=== PATIENT | female | born 1945 | race Caucasian/White ===

== ENCOUNTER 2019-09-18 21:25 | Inpatient (IN) | payer MEDICARE, BC ==
[~2019-09-18] VITALS: Ht 165.1 cm; Wt 99.8 kg
--- NOTE | 2019-09-18 21:35 | NUR ---
BIBRA 60FOR C/O CP 5/10 X 1 HOUR, NON- RQDIATING, +N/V. MONITOR APPLIED. PT HAS RECEIVED 324MG OF ASA MAYKEL A NITRO SL ON THE FIELD ASSOCIATE PROFESSOR OF MANAGEMENT,.
[2019-09-18] MEDS ORDERED: ASPIRIN 325 MG TABLET ONE (21:45)
[2019-09-18 21:52] LABS: BASOPHILS # (AUTO) 0.1 /CMM (0.0-0.2); BASOPHILS % (AUTO) 0.7 % (0.0-2.0); EOSINOPHILS % (AUTO) 2.5 % (0.0-6.0); HEMATOCRIT 41 % (33-45); HEMOGLOBIN 13.5 g/dL (11.5-14.8); LYMPHOCYTES # (AUTO) 3.5 /CMM (0.8-4.8); LYMPHOCYTES % (AUTO) 28.9 % (20.0-44.0); MEAN CORPUSCULAR HGB CONC 33 g/dl (31.0-36.0); MEAN CORPUSCULAR VOLUME 89 fL (82-100); MONOCYTES # (AUTO) 0.7 /CMM (0.1-1.30); MONOCYTES % (AUTO) 5.5 % (2.0-12.0); NEUTROPHILS # (AUTO) 7.6 /CMM (1.8-8.9); NEUTROPHILS % (AUTO) 62.4 % (43.0-81.0); PLATELET COUNT (AUTO) 268 /CMM (150-450); RED BLOOD CELL COUNT(AUTO) 4.67 MIL/uL (4.0-5.2); WHITE BLOOD COUNT (AUTO) 12.2 K/uL (4.3-11.0)
[2019-09-18] MEDS ORDERED: IV NS 0.9% 500 ML IV ONE (22:00)
[2019-09-18] MEDS ORDERED: ASPIRIN 325 MG TABLET PO ONE (22:00)
[2019-09-18 22:03] LABS: CALCIUM, SERUM 8.9 mg/dL (8.5-10.1); CARBON DIOXIDE 25 mmol/L (21-32); CHLORIDE 105 mmol/L (98-107); CREATININE 1.2 mg/dL (0.6-1.3); GLUCOSE 225 mg/dL (74-106); POTASSIUM 3.9 mmol/L (3.5-5.1); SODIUM SERUM 142 mmol/L (136-145); UREA NITROGEN, BLOOD 20 mg/dL (7-18)
[2019-09-18] MEDS ORDERED: CT SWABBABLE VALVE TRANS SET 1 EA INFUS.SET MC ONE (22:14)
[2019-09-18] MEDS ORDERED: IV NS 0.9% 250 ML IV ONE (22:14)
[2019-09-18] MEDS ORDERED: IOHEXOL-350 100 ML VIAL IV ONE (22:14)
[2019-09-18] MEDS ORDERED: IV NS 0.9% 1,000 ML BAG IV ONE (22:30)
[2019-09-18] MEDS ORDERED: DEXAMETHASONE SOD PHOSPHATE 10 MG/ML VIAL ONE (22:53)
[2019-09-18] MEDS ORDERED: DEXAMETHASONE SOD PHOSPHATE 10 MG/ML VIAL IV ONE (23:00)
[2019-09-18] MEDS ORDERED: KETOROLAC TROMETHAMINE INJ 30 MG/ML VIAL ONE (23:11)
[2019-09-18] MEDS ORDERED: KETOROLAC TROMETHAMINE INJ 30 MG/ML VIAL IV ONE (23:30)
--- NOTE | 2019-09-18 23:37 | NUR ---
PT/ FRIEND DO NOT HAVE THE LIST OF HOME MEDS WITH HER. GREGORY WILL PROVIDE THE LIST IN AM.
[2019-09-19] MEDS ORDERED: ONDANSETRON HCL/PF 4 MG/2 ML VIAL ONE (00:24)
[2019-09-19] MEDS ORDERED: ONDANSETRON HCL/PF - ER 4 MG/2 ML VIAL IV ONE (00:30)
--- NOTE | 2019-09-19 00:46 | NUR ---
REPORT GIVEN TO RONIT FOR ANASTACIA
[2019-09-19 00:55] VITALS: BP 118/74
--- NOTE | 2019-09-19 00:55 | NUR ---
DATA DELIVERABLES MANAGER NOTE PT ARRIVED TO FLOOR VIA GURNEY ACCOMPANIED BY PARTNER AND ER STAFF. PT ARRIVED IN STABLE CONDITION A/O X4, NO SOB OR DISTRESS, COMPLAINTS OF CHEST PAIN AT #6, TELE MONITOR: SR 76. IV IN R AC #[address] S/L[address] ALL CURRENT NEEDS ATTENDED TO. BED LOW, LOCKED, UPPER RAIL UP AND CALL LIGHT WITHIN REACH. WILL CONT. TO MONITOR. PT REFUSES BODY ASSESSMENT. ALL BELONGINGS ACCOUNTED AND SIGNED FOR. MD AWARE OF PT ARRIVAL.
[2019-09-19] MEDS ORDERED: MAG HYDROX/AL HYDROX/SIMETH 30 ML UDC PO PRN (01:00)
[2019-09-19] MEDS ORDERED: Z GUARD REMEDY 2 OZ OINT TP PRN (01:00)
[2019-09-19] MEDS ORDERED: ZOLPIDEM TARTRATE 5 MG TABLET PO PRN (01:00)
[2019-09-19] MEDS ORDERED: MAGNESIUM HYDROXIDE 30 ML UDC PO PRN (01:00)
[2019-09-19] MEDS ORDERED: ONDANSETRON HCL/PF 4 MG/2 ML VIAL IVP PRN (01:00)
[2019-09-19] MEDS ORDERED: ACETAMINOPHEN 325 MG TABLET PO PRN (01:00)
[2019-09-19] MEDS ORDERED: HYDROCODONE/APAP 5/325MG 1 EACH TABLET PO PRN (01:00)
[2019-09-19] MEDS ORDERED: ENOXAPARIN SODIUM 40 MG/0.4 ML DISP.SYRIN SQ SCH (01:00)
--- NOTE | 2019-09-19 01:05 | NUR ---
PT WAS TRANSFERRED TO [facility] UNDER ACLS
[2019-09-19 04:00] VITALS: BP 122/72
--- NOTE | 2019-09-19 06:09 | NUR ---
MESMERIST NOTE CALLED BROOKLYNN FROM NUCLEAR MED IN REGARDS NM ADEMO CARDIAC STRESS TEST TODAY. WILL ENDORSE TO NEXT SHIFT FOR ANASTACIA.
--- NOTE | 2019-09-19 06:15 | NUR ---
SUPERVISOR DRYING NOTE PT REMAINS IN STABLE CONDITION A/O X4, NO SOB OR DISTRESS, COMPLAINTS OF CHEST PAIN AT #6, TELE MONITOR: SR 89. IV IN R AC #[address] S/L. ALL CURRENT NEEDS ATTENDED TO. BED LOW, LOCKED, UPPER RAILS UP AND CALL LIGHT WITHIN REACH. WILL CONT. TO MONITOR AND ENDORSE TO NEXT SHIFT FOR ANASTACIA.
[2019-09-19 08:00] VITALS: BP 140/83
[2019-09-19] MEDS ORDERED: REGADENOSON 0.4 MG/5 ML DISP.SYRIN IVP ONE (08:00)
--- NOTE | 2019-09-19 08:00 | NUR ---
ms rn was seen by serena hernandez/ orders made and carried out,
--- NOTE | 2019-09-19 08:00 | NUR ---
ms rn received on bed, awake,alert,oriented x4,not in any form of distress, respirations even and unlabored,no sob noted, denies pain at this time, will monitor patient.
--- NOTE | 2019-09-19 09:00 | NUR ---
ms nr went down for stress test.
--- NOTE | 2019-09-19 10:00 | NUR ---
ms rn was seen by leopoldo sadler monitor patient.
[2019-09-19 11:51] LABS: ALBUMIN 3.4 g/dL (3.4-5.0); BILIRUBIN,TOTAL 0.8 mg/dL (0.2-1.0); CALCIUM, SERUM 9.3 mg/dL (8.5-10.1); CREATININE 1.2 mg/dL (0.6-1.3); POTASSIUM 4.1 mmol/L (3.5-5.1); TOTAL PROTEIN, SERUM 6.8 g/dL (6.4-8.2)
[2019-09-19] MEDS ORDERED: LORC10TA PO (13:28)
[2019-09-19] MEDS ORDERED: CHOL50002 PO (13:29)
[2019-09-19] MEDS ORDERED: AMLO10TA4 PO (13:29)
[2019-09-19] MEDS ORDERED: DIET1CAP4 PO (13:29)
[2019-09-19] MEDS ORDERED: THYR60TA2 PO (13:29)
[2019-09-19] MEDS ORDERED: CARV25TA2 PO (13:29)
--- NOTE | 2019-09-19 15:08 | NUR ---
ms toma sadler came to discharge patient,all needs attended.
--- NOTE | 2019-09-19 15:10 | NUR ---
MS RN PATIENT COMPLAIN OF BACK PAIN 8/, OFFERING TYLENOL BUT REFUSED, WANTS TO HAVE A STRONGER PILL.
--- NOTE | 2019-09-19 15:13 | NUR ---
MS JENNIFER BONNER GIVEN ORAL FOR BACK PAIN 05/06, WILL MONITOR PATIENT.
--- NOTE | 2019-09-19 15:15 | NUR ---
MS RN CALLED FOR HELP, PATIENT FOUND ON A CHAIR,NON RESPONSIVE, BREATHING AND WITH PULSE, RAPID RESPONSE WAS CALLED, PATIENT PUT ON FLOOR, TO BEGIN TREATMENT.
[2019-09-19] MEDS ORDERED: HYOS0.1275 SL (15:16)
--- NOTE | 2019-09-19 15:26 | NUR ---
ms rn patient was stabilized, put back to bed.
[2019-09-19] MEDS ORDERED: NALOXONE HCL 0.4 MG/ML AMPUL IV STA (15:37)
[2019-09-19] MEDS ORDERED: NALOXONE HCL 0.4 MG/ML AMPUL ONE (15:41)
--- NOTE | 2019-09-19 15:55 | NUR ---
ms rn patient was started to deteriorate and pulseless, code blue announce at this time.cpr started.
--- NOTE | 2019-09-19 15:55 | NUR ---
RT Pt became completely unresponsive without any pulse. CPR was initiated. Pt was intubated by ANITHA IBRAHIM, 7.5 ET tube secured at 25cm at the lip line. Positive CO2 change and equal bilateral breath sounds and chest rise noted. Addendum: 09/19/19 at 1802 by GUERO KENDALL RT Amended: Links added.
--- NOTE | 2019-09-19 16:09 | NUR ---
ms rn patient went pulseless again, 2nd code blue announced.
--- NOTE | 2019-09-19 16:20 | NUR ---
ms rn patient revived
[2019-09-19 16:32] LABS: BASOPHILS % (AUTO) 0.2 % (0.0-2.0); CALCIUM, SERUM 8.8 mg/dL (8.5-10.1); CREATININE 1.2 mg/dL (0.6-1.3); EOSINOPHILS % (AUTO) 0.1 % (0.0-6.0); HEMATOCRIT 38 % (33-45); LYMPHOCYTES # (AUTO) 4.5 /CMM (0.8-4.8); LYMPHOCYTES % (AUTO) 22.9 % (20.0-44.0); MEAN CORPUSCULAR HGB CONC 32 g/dl (31.0-36.0); MEAN CORPUSCULAR VOLUME 93 fL (82-100); MONOCYTES # (AUTO) 1.4 /CMM (0.1-1.30); MONOCYTES % (AUTO) 7.1 % (2.0-12.0); NEUTROPHILS # (AUTO) 13.6 /CMM (1.8-8.9); NEUTROPHILS % (AUTO) 69.7 % (43.0-81.0); PLATELET COUNT (AUTO) 163 /CMM (150-450); POTASSIUM 4.6 mmol/L (3.5-5.1); RED BLOOD CELL COUNT(AUTO) 4.07 MIL/uL (4.0-5.2); WHITE BLOOD COUNT (AUTO) 19.5 K/uL (4.3-11.0)
--- NOTE | 2019-09-19 16:36 | NUR ---
MS RN PATIENT WAS INTUBATED AND HAVE PULSE, WILL BE TRANSFERRING TO ICU SOON.
--- NOTE | 2019-09-19 16:45 | NUR ---
ms rn patient transferred to icu,via crrt team.
[2019-09-19] MEDS ORDERED: CT SWABBABLE VALVE TRANS SET 1 EA INFUS.SET MC ONE (16:47)
[2019-09-19] MEDS ORDERED: IOHEXOL-350 100 ML VIAL IV ONE (16:47)
[2019-09-19] MEDS ORDERED: IV NS 0.9% 250 ML IV ONE (16:47)
[2019-09-19] MEDS ORDERED: EPINEPHRINE (1:1000) 1 MG in IV D5W 250 ML IV PRN (17:00)
--- NOTE | 2019-09-19 17:10 | NUR ---
ORIENTAL RUG REPAIRER ESCORTED PT TO ICU ROOM 258 WITH MONITOR AND RT SUPPORT FROM CT SCAN. S/P CODE BLUE IN CT SCAN AND ON THE FLOOR. ETT IN PLACE, CONNECTED TO VENT AND MONITOR. DR JACKELYN GRIFFITH AND DR KERRY SALAZAR HERE TO MANAGE PT. PT HAD RUPTURED AORTA PER SCAN. LABILE HEART RATE AND BLOOD PRESSURE. ON EPINEPHRINE DRIP AT 1 MG/MIN AND DOPAMINE DRIP AT 20 MCG/KG/MIN INFUSING PER CENTRAL LINE IN LEFT FEMORAL VEIN. SIGNIFICANT OTHER PRUDENCE FRANKI WITH PT. Addendum: 09/19/19 at 1933 by JERRICA MACHADO RN PT HAS VERY WEAK PULSE ON ADMISSION, UNABLE TO GET BP.
--- NOTE | 2019-09-19 17:22 | NUR ---
RT Pt brought to ICU and placed on mechanical ventilation. Vent alarms are set and audible with BVM by bedside. OPERATING ROOM NURSE cuff pressure noted. Vent is plugged into red outlet. Addendum: 09/19/19 at 1802 by GUERO KENDALL RT Amended: Links added.
[2019-09-19] MEDS ORDERED: DOPamine 800 MG in IV D5W 250 ML IV PRN (17:30)
[2019-09-19 17:39] LABS: ABG BASE EXCESS -1.4 mmol/L; ABG OXYGEN SATURATION 70.5 % (92.0-98.5); ABG PCO2 49.6 mmHg (35.0-45.0); ABG PH 7.318 (7.350-7.450); ABG PO2 48.5 mmHg (75.0-100.0); AaDO2 506.1 mmHg; COHb 0.2 % (0.5-1.5); MetHb 0.7 % (0.0-1.5); O2Hb 69.9 % (94.0-97.0); SITE, ABG Right Brachial; VENT MODE, BG AMBU BAG 100%
[2019-09-19 17:58] VITALS: BP 125/61
[2019-09-19] MEDS ORDERED: EPINEPHRINE (1:10,000) SYRINGE 1 MG/10 ML DISP.SYRIN IVP ONE (18:04)
[2019-09-19] MEDS ORDERED: DOPamine 400 MG/D5W 250 ML RTU PIGGYBACK IV ONE (18:04)
[2019-09-19] MEDS ORDERED: SODIUM BICARBONATE SYR 50 MEQ/50 ML DISP.SYRIN IV ONE (18:04)
--- NOTE | 2019-09-19 19:16 | NUR ---
HOSPITALIST PROGRAM DIRECTOR PT'S CARDIAC RHYTHM PROGRESSED TO AGONAL WITH RATE 30'S. NO PULSES PALPABLE. PEA. DR GRIFFITH AWARE AND DISCUSSED GRAVE CONDITION WITH SIGNIFICANT OTHER, PRUDENCE AND FRIENDS IN ATTENDANCE. PT WAS PRONOUNCED AT 1805.
--- NOTE | 2019-09-19 19:18 | NUR ---
MOLDER CLOSED MOLDS POST MORTEM CARE COMPLETED FOR TRANSFER TO MORTUARY. REMAINS PICKED UP BY [facility]. RELEASE OF REMAINS SIGNED BY BART DOAN AND MORTUARY SPEECH LANGUAGE THERAPIST. PT BELONGINGS TAKEN BY SIGNIFICANT OTHER I.E 2 SUITCASES.
[2019-09-25 15:06] LABS: CHROMOGRANIN A 2 nmol/L (0-5)
== END 2019-09-19 18:05 | disposition expired | DRG 208 ==
LOC: ER 21:30 → TELE 09-19 00:32 → ICU 09-19 16:42
PROVIDERS: ADMIT Hospitalist; ATTEND Hospitalist
PROC: 5A12012 Performance of Cardiac Output, Single, Manual (ICD-10-PCS; principal; 2019-09-19)
PROC: 5A1935Z Respiratory Ventilation, Less than 24 Consecutive Hours (ICD-10-PCS; 2019-09-19)
PROC: 0BH17EZ Insertion of Endotracheal Airway into Trachea, Via Natural or Artificial Opening (ICD-10-PCS; 2019-09-19)
PROC: 05HY33Z Insertion of Infusion Device into Upper Vein, Percutaneous Approach (ICD-10-PCS; 2019-09-19)
DX: M94.0 Chondrocostal junction syndrome [Tietze] (principal); I71.00 Dissection of unspecified site of aorta; I31.3 Pericardial effusion (noninflammatory); J98.11 Atelectasis; E34.0 Carcinoid syndrome; I10 Essential (primary) hypertension; E03.9 Hypothyroidism, unspecified; E66.9 Obesity, unspecified; Z68.36 Body mass index [BMI] 36.0-36.9, adult; I46.9 Cardiac arrest, cause unspecified; B34.9 Viral infection, unspecified
CPT/HCPCS: 36415; 36600; 70450-TC; 71045-TC; 76700-TC; 80048-TC; 80053-TC; 82803-TC; 82962-TC; 83690-TC; 84260; 84484-TC; 85025-TC; 85730-TC; 86316; 87081-TC; 92950-TC; 93307-TC; 94002-TC; 99082-TC; A6403; A9502; C1751; G0378; J0171; J1100; J1265; J1650; J1885; J2310; J2405; J2785; J3490; J7030; J7040; J7050; J7060; Q9967